=== PATIENT | female | born 1955 | race Caucasian/White ===

== ENCOUNTER 2019-06-20 14:26 | Observation (INO) | payer OTHER, SELFPAY ==
[2019-06-20] VITALS (12 sets, daily range): BP systolic 110–172; BP diastolic 69–130; PULSE 57–70; RESP 16–19; TEMP 36.1–36.7; O2SAT 96–100; BMI 37.4; BMI 36.5
--- NOTE | 2019-06-20 14:47 | RAD_ITS ---
STUDY: X-RAY CHEST REASON FOR EXAM: Female, 63 years old. STROKE PROTOCOL TECHNIQUE: AP portable COMPARISON: None. FINDINGS: Less than optimal inspiratory effort is seen however the lungs are clear.. There is no demonstrated pleural abnormality. Heart appears mildly enlarged exaggerated by radiographic technique. Normal mediastinum and jenna. Normal visualized pulmonary arteries. Tortuous mildly calcified aortic knob and descending thoracic aorta Normal visualized thoracic spine. Normal visualized ribs, clavicles, and shoulders. Postsurgical changes in left upper quadrant. RAD/Chest 1 View IMPRESSION: Diminished inspiratory effort. No acute disease Electronically Signed: Yoan Amado MD at 16:08 EDT , Service support ,
--- NOTE | 2019-06-20 14:47 | EKG12_ITS ---
Test Reason : NEURO Blood Pressure : / mmHG Vent. Rate : 055 BPM Atrial Rate : 055 BPM P-R Int : 162 ms QRS Dur : 084 ms QT Int : 450 ms P-R-T Axes : 029 -18 030 degrees QTc Int : 430 ms Sinus bradycardia Low Voltage QRS (Limb Leads) Confirmed by YESICA PRUETT, JAY ([id number]), offline editor ASHWINI MUHAMMAD ([id number]) on 06/22/2019 9:38:57 AM Referred By: Confirmed By:JAY ROBERT MD
--- NOTE | 2019-06-20 14:48 | CT_ITS ---
STUDY: CTA HEAD AND NECK WITH CONTRAST REASON FOR EXAM: Female, 63 years old. PT STATED VISUAL DISTURBANCE SINCE YESTERDAY, MEMORY LOSS DIFFICULTY READING X FEW DAYS RADIATION DOSAGE (If Supplied By Facility): CTDIvol = ( 31 ) mGy, DLP = ( 1487.08 ) mGycm TECHNIQUE: CT angiography was performed with a multi-detector CT scanner. Data acquisition was obtained from the skull base through the vertex following intravenous administration of 100ML OPTIRAY 350. MIP images were reconstructed from the axial data set. Post-processing of the angiographic images was performed, with multiplanar reformation and 3D reconstruction. Individualized dose optimization techniques were used for this CT. COMPARISON: No relevant priors. FINDINGS: Normal bilateral petrous carotid arteries. Mild calcific plaquing of the right cavernous carotid artery with a normal supraclinoid bifurcation. Mild calcific plaquing of the left cavernous carotid artery with a normal supraclinoid bifurcation. Normal right A1 segments of the anterior cerebral artery. Normal left A1 segments of the anterior cerebral artery. Normal intact anterior communicating artery (ACOM). Normal bilateral A2 segments of the anterior cerebral arteries. Normal right M1 and M2 segments of the middle cerebral arteries, with a normal M1 bifurcation. Normal left M1 and M2 segments of the middle cerebral arteries, with a normal M1 bifurcation. Posterior communicating arteries are not visualized consistent with normal variant Normal bilateral vertebral arteries. Normal basilar artery with a normal basilar bifurcation. The visualized bilateral superior cerebellar (SCA) arteries are normal. Normal bilateral P1, P2 and visualized P3 segments of the posterior cerebral arteries. There is no demonstrated aneurysm of the [place]. There is no demonstrated abnormality of the visualized brain. AORTIC ARCH: Normal visualized aortic arch. Normal origins of the brachiocephalic, left common carotid, and left subclavian arteries. RIGHT CAROTID ARTERIES: Mild calcific plaquing of the distal right common carotid artery (and right common carotid bulb. Normal origin of the right internal carotid (ICA) artery without a hemodynamically significant stenosis. Normal visualized cervical portion of the right internal carotid artery. Normal origin of the right external carotid artery (ECA). LEFT CAROTID ARTERIES: Mild calcific plaquing of the distal left common carotid artery (CCA and left common carotid bulb. Minor calcific plaquing of the origin of the left internal carotid (ICA) artery without a hemodynamically significant stenosis. Normal visualized cervical portion of the left internal carotid artery. Normal origin of the left external carotid artery (ECA). VERTEBRAL ARTERIES: Left vertebral is dominant and normal caliber. The right vertebral is mildly diffusely narrowed consistent with normal developmental variant. Small solid nodule noted in the left lobe of the thyroid which may be further assessed with ultrasound CT/CTA Head AND Neck W/ Contrast IMPRESSION: Mild atherosclerotic disease without evidence for hemodynamically significant stenosis Incidental finding of small solid left thyroid nodule which may be further assessed with ultrasound Electronically Signed: Yoan Amado MD at 16:13 EDT , Service support ,
--- NOTE | 2019-06-20 14:49 | ED.VIS.GEN ---
History of Present Illness Chief Complaint: Neuro S/Sx Informant: Patient Onset: Today Narrative: Patient states that yesterday she had a diffuse headache. Around noon she was watching television when the lateral field of vision of her left eye became nonexistent. She states that the words on the television she could see but did not make any sense to her. She states that after a couple hours it resolved. Today she has had more of a right-sided headache and states that her right eye is having difficulty seeing the words on the television. States she went to the kitchen and did not know with the microwave or the stove were called. She states on the way here she did not know what trees were. She denies any slurred speech facial droop or arm or leg symptoms. She states she knows them now. She denies any recent head injury. She denies any medical problems. She states that she does wear glasses when driving but is been about 8 years since she saw her eye doctor. Past Medical History - Allergies and Home Meds Allergies/Adverse Reactions: Allergies codeine Allergy (Verified 06/20/19 14:32) Vomiting Primary Care Physician: NOT,DEFINED [NON-STAFF] - Review of Systems General: Denies: Chills, Fever, Sweats Eyes: Reports: Visual changes - left, Visual changes - right. Denies: Visual changes - bilaterally, Diplopia ENT: Denies: Rhinorrhea, Sore throat Cardiovascular: Denies: Chest pain, Palpitations Respiratory: Denies: Dyspnea, Cough, Dyspnea on exertion Gastrointestinal: Denies: Abdominal pain, Nausea, Vomiting, Diarrhea, Melena, Hematochezia Genitourinary: Denies: Dysuria, Hematuria, Frequency Musculoskeletal: Denies: Back pain, Extremity Pain Skin: Denies: Rash, Wounds Neurological: Reports: Headache, - - Expressive aphasia. Denies: Weakness, Numbness Physical Exam Vital Signs/Narrative: Vital Signs Temp Pulse Resp BP Pulse Ox 06/20/19 14:27 96.9 F L 66 16 165/101 H 100 Inital Vital Signs reviewed: Yes General: Well nourished, Well developed, No Acute Distress Head: Normocephalic, Atraumatic Eyes: Perrl, EOMI, - - Funduscopic exam I do not see any obvious retinal detachment ENT: Moist mucous membranes, No rhinorrhea Neck: Supple, Nontender Cardiovascular: Regular rate, Regular rhythm, No murmurs Respiratory: No distress, CTA bilaterally, Chest nontender Abdomen: Soft, Nontender, Nondistended, Normal bowel sounds Back: Nontender, Normal Inspection Extremities: Nontender, No edema Skin: Normal color, No rash Neurological: Alert, Oriented x3, Cranial nerves II-XII grossly intact, Normal Strength, Normal Sensation, - - At the time of my examination I would score her a NIH of 0 Psychological: Normal affect, Normal Mood ED Disposition - Plan for ED Patient: Disposition: Acute Care [facility] Diagnosis: Headache, Vision changes, Elevated troponin Referrals: NOT,DEFINED [NON-STAFF] -
[2019-06-20 14:51] LABS: Bedside Glucose 78 mg/dL (70-110)
--- NOTE | 2019-06-20 14:54 | NURSING ---
NO OLD EKGS
[2019-06-20 15:01] LABS: Absolute Lymphocyte Count 2.66 X10^3/uL (0.83-4.51); Absolute Neutrophil Count 3.8 X10^3/uL (2.0-7.7); Basophil# 0.05 X10^3/uL; Basophil% 0.7 % (0-1); Eosinophil# 0.15 X10^3/uL; Hematocrit 40.5 % (37-47); Hemoglobin 12.7 g/dL (12.0-15.0); Lymphocyte # 2.66 X10^3/ul (4.0); Lymphocyte % 36.3 % (19-41); Mean Corp Hgb Conc 31.4 g/dL (32-36); Mean Corpuscular Hgb 27.8 pg (27.0-32.0); Mean Corpuscular Volume 88.6 fL (81-99); Mean Platelet Vol. 10.4 fl (6.2-12.0); Monocyte# 0.67 X10^3/uL; Monocyte% 9.1 % (0-10); NRBC Flagged by Analyzer 0 % (0-5); Neutrophil # 3.79 X10^3/uL (2.7-7.7); Neutrophil % 51.8 % (47-70); Platelet Count 299 K/mm3 (150-450); RBC Distribution Width CV 14.6 % (11.6-14.6); RBC Distribution Width SD 46.5 fl (35.1-43.9); Red Blood Count 4.57 M/mm3 (4.2-5.4); White Blood Count 7.3 K/mm3 (4.4-11.0)
[2019-06-20 15:18] LABS: Prothrombin Time (Protime)PT. 13.3 SECONDS (11.7-14.9)
[2019-06-20 15:19] LABS: Partial Thromboplast Time 30.5 Seconds (24.1-36.2)
[2019-06-20 15:21] LABS: Anion Gap 6 (5-15); BUN 13 mg/dL (7-18); Calcium,Total 8.7 mg/dL (8.5-10.1); Chloride 109 mmol/L (98-107); Creatinine, Serum 0.81 mg/dL (0.55-1.02); EST Glomerular Filtration Rate 76 mL/min (>60); Est Glom Filt Rate - Afr Amer 91 mL/min (>60); Estimated Creatinine Clearance 61.39 ml/min; Glucose 85 mg/dL (74-106); Potassium 3.9 mmol/L (3.5-5.1); Sodium Level 142 mmol/L (136-145)
[2019-06-20 15:53] LABS: AST(SGOT) 30 U/L (15-37); Alanine Aminotransfer ALT/SGPT 32 U/L (13-56); Albumin, Serum 3.7 g/dL (3.2-5.0); Alkaline Phosphatase 157 U/L (45-117); Bilirubin, Direct 0.11 mg/dL (0.00-0.30); Globulin 3.8 g/dL (2.2-4.2); Protein, Total 7.5 g/dL (6.4-8.2)
[2019-06-20 16:05] LABS: Magnesium 2.3 mg/dL (1.6-2.6); Thyroid Stim Hormone (TSH) 2.05 uIU/mL (0.358-3.74)
--- NOTE | 2019-06-20 17:01 | HP.PCM_ITS ---
<Cindy Cornejo - Last Filed: 06/20/19 17:26> Problem List (1) Headache Status: Acute (2) Vision changes Status: Acute (3) Elevated troponin Status: Acute History of Present Illness Date of Admission: 06/20/19 Chief Complaint: Vision changes. The patient is a 63 year old F who presents to the Emergency room due to vision changes and difficulty finding words. Patient states last evening she was watching TV and noticed left eye peripheral vision changes which lasted 30 minutes to 1 hour. She then states today she was watching the news and had trou ble understanding what the words meant to the bottom of the screen. She then had difficulty remembering what things were called including the stove and microwave and her had to help her identify these things. She states the right side of her eye and face feels funny describing it as feeling swollen. She denies numbness, tingling. Denies further vision changes. She reports mucousy diarrhea for the past 4 days. Denies fever, chills. Denies cough, shortness of breath, palpitations, chest pain. Patient reports mild headache, ongoing for 3 to 4 days which is on the top of her head. She has a history of migraines and states her ongoing headache is much less severe than her typical migraine. Patient states she has been under increased stress over the last week due to being at home with her . She states she gets tired of hearing him talk. She denies any abuse at home, states she feels safe at home. She has a past medical history of depression, denies other medical history. Past Medical History Allergies codeine Allergy (Verified 06/20/19 14:32) Vomiting Home Medications: Ambulatory Orders Medication Instructions Recorded Escitalopram Oxalate [Lexapro] 10 mg PO DAILY PRN PRN 06/20/19 Surgical History: - - Tonsillectomy, appendectomy, cholecystectomy, gastric bypass surgery, left knee surgery. 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 Denies: Abdominal Pain, Nausea, Vomiting Genitourinary: Reports: Dysuria Musculoskeletal: Denies: Joint Pain, Joint Tenderness Skin: Denies: Rash, Wounds Neurological: Reports: Blurred vision, - - Difficulty finding words. Denies: Change in Speech, Slurred speech, Confusion, Difficulty swallowing, Focal weakness, Numbness, Tingling Psychiatric: Reports: Anxiety, Depression Hematologic/ Lymphatic: Denies: Easy Bruising, Easy Bleeding VTE Information - Inpt Only VTE Present on Admission: No VTE Mechan Device Prophylaxis: None VTE Pharm Prophylaxis ordered?: Yes Patient Problems: Active and Suspected Problems Headache (Acute) Vision changes (Acute) Elevated troponin (Acute) - Physical Exam Vitals/I&O's: Vital Signs Temp Pulse Resp BP Pulse Ox 96.9 F L 60 19 H 163/93 H 99 06/20/19 14:27 06/20/19 16:00 06/20/19 16:00 06/20/19 16:00 06/20/19 16:00 Oxygen Delivery Method Room Air Weight: 218 lb 0.595 oz Body Mass Index (BMI) 37.4 Finger Stick Blood Glucose 78 General: Alert, Oriented x3, Cooperative HEENT: Atraumatic, PERRLA, EOMI, Normocephalic Neck: Supple, No JVD, Negative Carotid Bruits Lungs: Clear to auscultation, Normal air movement Cardiovascular: Regular rate, No murmurs Abdomen: Bowel Sounds Present, Soft, Non Tender Extremities: No clubbing, No cyanosis, No edema, Capillary Refill Less than 3 Seconds Skin: No rashes, No breakdown Musculoskeletal: No Tenderness to Palpation of Joints or Extremities Neurological: Cranial nerves II-XII grossly intact, Neuro grossly intact Psych/Mental Status: Normal Affect, Appropriate Laboratory Results 06/20/19 14:43: POC Glucose 78 06/20/19 14:50: WBC 7.3, RBC 4.57, Hgb 12.7, Hct 40.5, MCV 88.6, MCH 27.8, MCHC 31.4 L, RDW Std Deviation 46.5 H, RDW Coeff of Anibal 14.6, Plt Count 299, MPV 10.4, Immature Gran % (Auto) 0.100, Neut % (Auto) 51.8, Lymph % (Auto) 36.3, [place] % (Auto) 9.1, Eos % (Auto) 2.0, Baso % (Auto) 0.7, Absolute Neuts (auto) 3.8, Absolute Lymphs (auto) 2.66, Nucleated RBC % 0 06/20/19 14:50: PT 13.3, INR 1.0, APTT 30.5 06/20/19 14:50: Sodium 142, Potassium 3.9, Chloride 109 H, Carbon Dioxide 27.0, Anion Gap 6, BUN 13, Creatinine 0.81, Estim Creat Clear Calc 61.39, Est GFR (MDRD) Af Amer 91, Est GFR (MDRD) Non-Af 76, BUN/Creatinine Ratio 16.0, Glucose 85, Calcium 8.7, Troponin I 0.171 H 06/20/19 14:50: Total Bilirubin 0.30, Direct Bilirubin 0.11, AST 30, ALT 32, Alkaline Phosphatase 157 H, Total Protein 7.5, Albumin 3.7, Globulin 3.8 06/20/19 14:50: Magnesium 2.3, TSH 2.05 Assessment/Plan All Active Problems Headache (Acute) Vision changes (Acute) Elevated troponin (Acute) 1. Vision changes, headache, aphasia- R/O CVA. Head and neck CTA on admission unremarkable. Obtain MRI of brain. Obtain echocardiogram. [facility]. PT/OT/ST. Aspirin, statin. Fasting lipid panel in a.m. Check hemoglobin A1c. 2. Abnormal troponin-unclear etiology. EKG without ST-T changes. Patient denies chest pain. Trend enzymes. Repeat EKG in a.m. Echo as noted above. 3. Anxiety/depression-continue Lexapro regimen. DVT prophylaxis-Lovenox subcu This patient was seen by KAITLYN Quispe under the supervision of Dr. Phillips. <Sharri Phillips - Last Filed: 06/20/19 18:15> History of Present Illness The patient is a 63 year old F [] Past Medical History Allergies codeine Allergy (Verified 06/20/19 14:32) Vomiting - Physical Exam Vitals/I&O's: Vital Signs Temp Pulse Resp BP Pulse Ox 96.9 F L 57 L 16 163/130 H 100 06/20/19 14:27 06/20/19 17:00 06/20/19 17:00 06/20/19 17:00 06/20/19 17:00 Oxygen Delivery Method Room Air Weight: 98.9 kg Body Mass Index (BMI) 37.4 Finger Stick Blood Glucose 78 Laboratory Results 06/20/19 14:43: POC Glucose 78 06/20/19 14:50: WBC 7.3, RBC 4.57, Hgb 12.7, Hct 40.5, MCV 88.6, MCH 27.8, MCHC 31.4 L, RDW Std Deviation 46.5 H, RDW Coeff of Anibal 14.6, Plt Count 299, MPV 10.4, Immature Gran % (Auto) 0.100, Neut % (Auto) 51.8, Lymph % (Auto) 36.3, [place] % (Auto) 9.1, Eos % (Auto) 2.0, Baso % (Auto) 0.7, Absolute Neuts (auto) 3.8, Absolute Lymphs (auto) 2.66, Nucleated RBC % 0 06/20/19 14:50: PT 13.3, INR 1.0, APTT 30.5 06/20/19 14:50: Sodium 142, Potassium 3.9, Chloride 109 H, Carbon Dioxide 27.0, Anion Gap 6, BUN 13, Creatinine 0.81, Estim Creat Clear Calc 61.39, Est GFR (MDRD) Af Amer 91, Est GFR (MDRD) Non-Af 76, BUN/Creatinine Ratio 16.0, Glucose 85, Calcium 8.7, Troponin I 0.171 H 06/20/19 14:50: Total Bilirubin 0.30, Direct Bilirubin 0.11, AST 30, ALT 32, Alkaline Phosphatase 157 H, Total Protein 7.5, Albumin 3.7, Globulin 3.8 06/20/19 14:50: Magnesium 2.3, TSH 2.05 Current Medications Sodium Chloride () 10 - 40 ml IV UD PRN PRN Reason: SALINE FLUSH Assessment/Plan This patient was seen in conjunction with Cindy Cornejo NP. I have independently interviewed and examined the patient and reviewed pertinent historical, laboratory, and other data. Please refer to her note for patient's presentation, findings, and recommendations. 63 y/o female with PMHx of anxiety/depression, history of migraine, not on medication who comes in with left-sided peripheral vision loss that lasted for 30 minutes yesterday and progressive worsening vision as well as word finding difficulty that started this afternoon. Her symptoms seem to fluctuate. She has a 3 day history of generalized cranial headache, no worse with any lights. This does not feel like a migraines. She denied any palpitations or chest pain or shortness of breath. No weakness or tingling in any of her extremities. 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 Visual changes, possible TIA/CVA versus conversion disorder vs complex migraine 2. Abnormal troponin 3. Anxiety/depression 4. Obesity, BMI 36.5 Meds reviewed Plan: TIA/CVA protocol MRI of the brain, 2D echo, PT/OT/ST HgbA1c, fasting lipid profile Aspirin 81 mg p.o. daily Atorvastatin 80 mg p.o. nightly Trend troponins OBSV E&M: 36511 Initial observation care L3
--- NOTE | 2019-06-20 17:02 | NURSING ---
PCU PAINTSIL HEADACHE, VISION CHANGES, ELEVATED TROP
--- NOTE | 2019-06-20 17:17 | ED.RN ---
DR. REZA CANCELS EVERY 30 MINUTE [facility]S
--- NOTE | 2019-06-20 17:51 | MRI_ITS ---
STUDY: MRI BRAIN WITHOUT CONTRAST REASON FOR EXAM: Female, 63 years old. R headache R vision loss TECHNIQUE: Standardized multiplanar fat and water weighted pulse sequences were obtained. COMPARISON: CT of the brain June 20, 2019 FINDINGS: Normal size of the ventricles and extra-axial spaces for the patient''s age. There are a couple of tiny nonspecific white matter lesions without mass effect or restricted diffusion likely due to small vessel ischemic changes in patient of this age. Normal bilateral basal ganglia. Normal thalami. There is no extra-axial fluid accumulation. Normal flow voids within the major intracranial circulation suggesting patency by spin echo criteria. Normal sella turcica, pituitary gland, infundibular stalk, optic chiasm and hypothalamus. Normal tectal plate and pineal gland. Normal midbrain, jaz and medulla. Normal cerebellum. Normal basal cisterns. Normal bilateral temporal bones. Normal bilateral internal auditory canals. No demonstrated orbital abnormality, within the constraints of a routine brain study. Minor mucosal thickening of the ethmoid air cells. Normal calvarium and skull base. Normal visualized soft tissue structures. Normal visualized upper cervical spine. MRI/Brain without Contrast IMPRESSION: Minor periventricular white matter ischemic changes without evidence for acute infarct. Minor ethmoid sinus disease Electronically Signed: Yoan Amado MD at 20:47 EDT , Service support ,
[2019-06-20] MEDS: Acetaminophen 325 MG Tablet 650 MG PO (18:14)
[2019-06-20 20:06] LABS: Hemoglobin A1c 6.1 % (4.2-6.3)
[2019-06-20] MEDS: Atorvastatin Calcium 80 MG Tablet PO (21:44)
[2019-06-20] MEDS: Famotidine 20 MG Tablet PO (21:44)
[2019-06-21] VITALS (9 sets, daily range): BP systolic 101–139; BP diastolic 67–84; PULSE 55–94; RESP 16–18; TEMP 36.4–36.9; O2SAT 95–97; BMI 36.5
[2019-06-21] MEDS: Acetaminophen 325 MG Tablet 650 MG PO (03:53)
[2019-06-21 05:59] LABS: Absolute Lymphocyte Count 1.83 X10^3/uL (0.83-4.51); Absolute Neutrophil Count 1.7 X10^3/uL (2.0-7.7); Basophil# 0.04 X10^3/uL; Basophil% 0.9 % (0-1); Eosinophil# 0.17 X10^3/uL; Hematocrit 36.7 % (37-47); Hemoglobin 11.3 g/dL (12.0-15.0); Lymphocyte # 1.83 X10^3/ul (4.0); Lymphocyte % 43.1 % (19-41); Mean Corp Hgb Conc 30.8 g/dL (32-36); Mean Corpuscular Hgb 27.2 pg (27.0-32.0); Mean Corpuscular Volume 88.4 fL (81-99); Mean Platelet Vol. 10.5 fl (6.2-12.0); Monocyte% 11.8 % (0-10); NRBC Flagged by Analyzer 0 % (0-5); Platelet Count 252 K/mm3 (150-450); RBC Distribution Width CV 14.4 % (11.6-14.6); RBC Distribution Width SD 46.2 fl (35.1-43.9); Red Blood Count 4.15 M/mm3 (4.2-5.4); White Blood Count 4.3 K/mm3 (4.4-11.0)
[2019-06-21 06:21] LABS: AST(SGOT) 23 U/L (15-37); Alanine Aminotransfer ALT/SGPT 27 U/L (13-56); Alkaline Phosphatase 128 U/L (45-117); Anion Gap 6 (5-15); BUN 12 mg/dL (7-18); BUN/Creat Ratio 16.6 RATIO (10-20); Calcium,Total 8.1 mg/dL (8.5-10.1); Chloride 109 mmol/L (98-107); Cholesterol 131 mg/dL (200); Creatinine, Serum 0.72 mg/dL (0.55-1.02); EST Glomerular Filtration Rate 86 mL/min (>60); Est Glom Filt Rate - Afr Amer 104 mL/min (>60); Estimated Creatinine Clearance 69.06 ml/min; Globulin 3.1 g/dL (2.2-4.2); Glucose 86 mg/dL (74-106); High Density Lipoprotein 60 mg/dL; Protein, Total 6.1 g/dL (6.4-8.2); Sodium Level 141 mmol/L (136-145); Triglycerides 46 mg/dL; Very Low Density Lipoprotein 9 mg/dL (5-40)
[2019-06-21] MEDS: Escitalopram Oxalate 10 MG Tablet PO (09:35)
[2019-06-21] MEDS: Aspirin 81 MG TAB.CHEW PO (09:35)
[2019-06-21] MEDS: Famotidine 20 MG Tablet PO ×2 (09:35→21:05)
[2019-06-21] MEDS: Acetaminophen 500 MG Tablet 1000 MG PO ×2 (11:06→19:43)
--- NOTE | 2019-06-21 11:14 | PCM.PROGNOTE ---
<Cindy Cornejo - Last Filed: 06/21/19 11:25> Patient Problems: Active and Suspected Problems Headache (Acute) Vision changes (Acute) Elevated troponin (Acute) Subjective: Patient seen and examined. Complains of mild headache and states her right face continues to feel abnormal. She denies numbness. States right face feels swollen. Denies chest pain or other current complaints. Patient reports she has had intermittent chest pain for the past few years, most recently 2 weeks ago. Episodes happen typically at rest and last for approximately 2 minutes. - Physical Exam Vitals/I&O's: Vital Signs Temp Pulse Resp BP Pulse Ox 98.5 F 75 16 110/73 97 06/21/19 10:50 06/21/19 10:50 06/21/19 10:50 06/21/19 10:50 06/21/19 10:50 Oxygen Delivery Method Room Air Weight: 214 lb 11.684 oz Body Mass Index (BMI) 36.5 Finger Stick Blood Glucose 78 Intake and Output for Last 24 Hours 06/19/19 06/20/19 06/21/19 23:59 23:59 23:59 Intake Total 240 / 240 Balance 240 / 240 General: Alert, Oriented x3, Cooperative HEENT: Atraumatic, PERRLA, EOMI, Normocephalic Neck: Supple, No JVD, Negative Carotid Bruits Lungs: Clear to auscultation, Normal air movement Cardiovascular: Regular rate, Regular Rhythm, Normal S1, Normal S2, No murmurs Abdomen: Bowel Sounds Present, Soft, Non Tender, Non-Distended Extremities: No clubbing, No cyanosis, No edema, Capillary Refill Less than 3 Seconds Skin: No rashes, No breakdown Musculoskeletal: No Tenderness to Palpation of Joints or Extremities Neurological: Cranial nerves II-XII grossly intact, Neuro grossly intact Psych/Mental Status: Normal Affect, Appropriate Laboratory Results 06/20/19 14:43: POC Glucose 78 06/20/19 14:50: WBC 7.3, RBC 4.57, Hgb 12.7, Hct 40.5, MCV 88.6, MCH 27.8, MCHC 31.4 L, RDW Std Deviation 46.5 H, RDW Coeff of Anibal 14.6, Plt Count 299, MPV 10.4, Immature Gran % (Auto) 0.100, Neut % (Auto) 51.8, Lymph % (Auto) 36.3, [place] % (Auto) 9.1, Eos % (Auto) 2.0, Baso % (Auto) 0.7, Absolute Neuts (auto) 3.8, Absolute Lymphs (auto) 2.66, Nucleated RBC % 0 06/20/19 14:50: PT 13.3, INR 1.0, APTT 30.5 06/20/19 14:50: Sodium 142, Potassium 3.9, Chloride 109 H, Carbon Dioxide 27.0, Anion Gap 6, BUN 13, Creatinine 0.81, Estim Creat Clear Calc 61.39, Est GFR (MDRD) Af Amer 91, Est GFR (MDRD) Non-Af 76, BUN/Creatinine Ratio 16.0, Glucose 85, Calcium 8.7, Troponin I 0.171 H 06/20/19 14:50: Total Bilirubin 0.30, Direct Bilirubin 0.11, AST 30, ALT 32, Alkaline Phosphatase 157 H, Total Protein 7.5, Albumin 3.7, Globulin 3.8 06/20/19 14:50: Magnesium 2.3, TSH 2.05 06/20/19 19:40: Hemoglobin A1c 6.1 06/20/19 19:40: Troponin I 0.156 H 06/20/19 23:05: Troponin I 0.149 H 06/21/19 05:16: WBC 4.3 L, RBC 4.15 L, Hgb 11.3 L, Hct 36.7 L, MCV 88.4, MCH 27.2, MCHC 30.8 L, RDW Std Deviation 46.2 H, RDW Coeff of Anibal 14.4, Plt Count 252, MPV 10.5, Immature Gran % (Auto) 0.200, Neut % (Auto) 40.0 L, Lymph % (Auto) 43.1 H, [place] % (Auto) 11.8 H, Eos % (Auto) 4.0, Baso % (Auto) 0.9, Absolute Neuts (auto) 1.7 L, Absolute Lymphs (auto) 1.83, Nucleated RBC % 0 06/21/19 05:16: Sodium 141, Potassium 4.0, Chloride 109 H, Carbon Dioxide 26.0, Anion Gap 6, BUN 12, Creatinine 0.72, Estim Creat Clear Calc 69.06, Est GFR (MDRD) Af Amer 104, Est GFR (MDRD) Non-Af 86, BUN/Creatinine Ratio 16.6, Glucose 86, Calcium 8.1 L, Total Bilirubin 0.50, AST 23, ALT 27, Alkaline Phosphatase 128 H, Total Protein 6.1 L, Albumin 3.0 L, Globulin 3.1, Albumin/Globulin Ratio 1.0, Triglycerides 46, Cholesterol 131, LDL Cholesterol 62, VLDL Cholesterol 9, HDL Cholesterol 60 Current Medications Acetaminophen (Tylenol) 1,000 mg PO Q8H PRN PRN PRN Reason: Pain Score 1-10/Temp > 100.7 F Last Admin: 06/21/19 11:06 Dose: 1,000 mg Documented by: Al Hydroxide/Mg Hydroxide (Mylanta Ii) 30 ml PO Q6H PRN PRN PRN Reason: Gastric Burning Aspirin (Aspirin, Baby) 81 mg PO DAILY@0800 [facility] Last Admin: 06/21/19 09:35 Dose: 81 mg Documented by: Atorvastatin Calcium (Lipitor) 80 mg PO QHS [facility] Last Admin: 06/20/19 21:44 Dose: 80 mg Documented by: Escitalopram Oxalate (Lexapro) 10 mg PO DAILY [facility] Last Admin: 06/21/19 09:35 Dose: 10 mg Documented by: Famotidine (Pepcid) 20 mg PO BID [facility] Last Admin: 06/21/19 09:35 Dose: 20 mg Documented by: Nitroglycerin (Nitrostat) 0.4 mg SUBLINGUAL Q5M PRN PRN Reason: CARDIAC/CHEST PAIN Sodium Chloride () 10 - 40 ml IV UD PRN PRN Reason: SALINE FLUSH Medical Necessity - Tobacco Use Smoking Status: Never smoker Tobacco Use: Non-smoker, Secondhand Assessment/Plan All Active Problems Headache (Acute) Vision changes (Acute) Elevated troponin (Acute) 1. Atypical migraine versus TIA-CVA ruled out. Head and neck CTA on admission unremarkable. MRI of brain without acute infarct. PT/OT/ST. Aspirin, statin. Recommend outpatient neurology follow-up. Ketorolac 30 mg IV x1 for ongoing headache. 2. Abnormal troponin-unclear etiology. EKG without ST-T changes. Patient denies chest pain. Enzymes did not trend. Plan for nuclear stress test. 3. Anxiety/depression-continue Lexapro regimen. DVT prophylaxis-Lovenox subcu This patient was seen by KAITLYN Quispe under the supervision of Dr. Mcknight. <James Mcknight - Last Filed: 06/21/19 13:53> Subjective: Headache for 5-6 days. Still with a swollen sensation on right side of face. Intermittent chest pain. - Physical Exam Vitals/I&O's: Vital Signs Temp Pulse Resp BP Pulse Ox 36.9 C 75 16 110/73 97 06/21/19 10:50 06/21/19 10:50 06/21/19 10:50 06/21/19 10:50 06/21/19 10:50 Oxygen Delivery Method Room Air Weight: 97.4 kg Body Mass Index (BMI) 36.5 Finger Stick Blood Glucose 78 Intake and Output for Last 24 Hours 06/19/19 06/20/19 06/21/19 23:59 23:59 23:59 Intake Total 240 / 240 480 / 480 Balance 240 / 240 480 / 480 General: Alert, Cooperative Neck: No Nodes, Trachea Midline Lungs: Clear to auscultation, Normal air movement Cardiovascular: Regular rate, Regular Rhythm, Normal S1, Normal S2, No murmurs Abdomen: Bowel Sounds Present, Soft, Non Tender, Non-Distended Neurological: Cranial nerves II-XII grossly intact, Neuro grossly intact, Motor Exam 5/5 strength throughout Psych/Mental Status: Normal Affect, Appropriate Laboratory Results 06/20/19 14:43: POC Glucose 78 06/20/19 14:50: WBC 7.3, RBC 4.57, Hgb 12.7, Hct 40.5, MCV 88.6, MCH 27.8, MCHC 31.4 L, RDW Std Deviation 46.5 H, RDW Coeff of Anibal 14.6, Plt Count 299, MPV 10.4, Immature Gran % (Auto) 0.100, Neut % (Auto) 51.8, Lymph % (Auto) 36.3, [place] % (Auto) 9.1, Eos % (Auto) 2.0, Baso % (Auto) 0.7, Absolute Neuts (auto) 3.8, Absolute Lymphs (auto) 2.66, Nucleated RBC % 0 06/20/19 14:50: PT 13.3, INR 1.0, APTT 30.5 06/20/19 14:50: Sodium 142, Potassium 3.9, Chloride 109 H, Carbon Dioxide 27.0, Anion Gap 6, BUN 13, Creatinine 0.81, Estim Creat Clear Calc 61.39, Est GFR (MDRD) Af Amer 91, Est GFR (MDRD) Non-Af 76, BUN/Creatinine Ratio 16.0, Glucose 85, Calcium 8.7, Troponin I 0.171 H 06/20/19 14:50: Total Bilirubin 0.30, Direct Bilirubin 0.11, AST 30, ALT 32, Alkaline Phosphatase 157 H, Total Protein 7.5, Albumin 3.7, Globulin 3.8 06/20/19 14:50: Magnesium 2.3, TSH 2.05 06/20/19 19:40: Hemoglobin A1c 6.1 06/20/19 19:40: Troponin I 0.156 H 06/20/19 23:05: Troponin I 0.149 H 06/21/19 05:16: WBC 4.3 L, RBC 4.15 L, Hgb 11.3 L, Hct 36.7 L, MCV 88.4, MCH 27.2, MCHC 30.8 L, RDW Std Deviation 46.2 H, RDW Coeff of Anibal 14.4, Plt Count 252, MPV 10.5, Immature Gran % (Auto) 0.200, Neut % (Auto) 40.0 L, Lymph % (Auto) 43.1 H, [place] % (Auto) 11.8 H, Eos % (Auto) 4.0, Baso % (Auto) 0.9, Absolute Neuts (auto) 1.7 L, Absolute Lymphs (auto) 1.83, Nucleated RBC % 0 06/21/19 05:16: Sodium 141, Potassium 4.0, Chloride 109 H, Carbon Dioxide 26.0, Anion Gap 6, BUN 12, Creatinine 0.72, Estim Creat Clear Calc 69.06, Est GFR (MDRD) Af Amer 104, Est GFR (MDRD) Non-Af 86, BUN/Creatinine Ratio 16.6, Glucose 86, Calcium 8.1 L, Total Bilirubin 0.50, AST 23, ALT 27, Alkaline Phosphatase 128 H, Total Protein 6.1 L, Albumin 3.0 L, Globulin 3.1, Albumin/Globulin Ratio 1.0, Triglycerides 46, Cholesterol 131, LDL Cholesterol 62, VLDL Cholesterol 9, HDL Cholesterol 60 Current Medications Acetaminophen (Tylenol) 1,000 mg PO Q8H PRN PRN PRN Reason: Pain Score 1-10/Temp > 100.7 F Last Admin: 06/21/19 11:06 Dose: 1,000 mg Documented by: Al Hydroxide/Mg Hydroxide (Mylanta Ii) 30 ml PO Q6H PRN PRN PRN Reason: Gastric Burning Aspirin (Aspirin, Baby) 81 mg PO DAILY@0800 [facility] Last Admin: 06/21/19 09:35 Dose: 81 mg Documented by: Atorvastatin Calcium (Lipitor) 80 mg PO QHS [facility] Last Admin: 06/20/19 21:44 Dose: 80 mg Documented by: Escitalopram Oxalate (Lexapro) 10 mg PO DAILY [facility] Last Admin: 06/21/19 09:35 Dose: 10 mg Documented by: Famotidine (Pepcid) 20 mg PO BID [facility] Last Admin: 06/21/19 09:35 Dose: 20 mg Documented by: Nitroglycerin (Nitrostat) 0.4 mg SUBLINGUAL Q5M PRN PRN Reason: CARDIAC/CHEST PAIN Sodium Chloride () 10 - 40 ml IV UD PRN PRN Reason: SALINE FLUSH Last Admin: 06/21/19 12:27 Dose: 10 ml Documented by: Assessment/Plan Patient seen and examined independently. Data reviewed. I agree with the above note by the nurse practitioner. 1. Atypical migraine: Stroke ruled out. We will treat the patient with a one-time dose of dexamethasone. Ketorolac as needed. Avoid triptan's until we find out further was going on from a cardiac standpoint. Patient states that she does get migraines occasionally but is still in frequent overall. Therefore, I do not feel the patient needs to be on any long-term prophylaxis. 2. Chest pain: Slight elevation in cardiac markers. Plan is for a nuclear stress test June 21. OBSV E&M: 12063 Initial observation care L3
[2019-06-21] MEDS: Ketorolac 30 MG/ML Syringe IV (12:25)
[2019-06-21] MEDS: 0.9% Saline Lock 10 ML Syringe IV ×3 (12:25→21:05)
[2019-06-21] MEDS: dexAMETHasone 10 MG/ML Vial IV (12:27)
[2019-06-21] MEDS: Atorvastatin Calcium 80 MG Tablet PO (21:04)
[2019-06-21] MEDS: Ketorolac 15 MG/ML Vial IV (21:05)
--- NOTE | 2019-06-21 23:38 | EKG12_ITS ---
Test Reason : DYSRHYTHMIA Blood Pressure : / mmHG Vent. Rate : 059 BPM Atrial Rate : 059 BPM P-R Int : 168 ms QRS Dur : 084 ms QT Int : 428 ms P-R-T Axes : 019 -23 029 degrees QTc Int : 423 ms Sinus bradycardia Otherwise normal ECG When compared with ECG of 20-JUN-2019 15:06, No significant change was found Confirmed by MICHAEL PRUETT, TYLER ([id number]), department editor SHIV CRONIN ([id number]) on 06/28/2019 2:33:38 PM Referred By: JOSE Confirmed By:TYLER RODRIGUEZ MD
[2019-06-22 00:30] VITALS: BP 126/69; PULSE 61; RESP 16; TEMP 36.5; O2SAT 94
[2019-06-22 02:59] VITALS: PULSE 53
--- NOTE | 2019-06-22 05:55 | EKG12_ITS ---
Test Reason : AM EKG Blood Pressure : / mmHG Vent. Rate : 060 BPM Atrial Rate : 060 BPM P-R Int : 156 ms QRS Dur : 090 ms QT Int : 450 ms P-R-T Axes : 019 -08 046 degrees QTc Int : 450 ms Sinus rhythm with Premature supraventricular complexes Otherwise normal ECG When compared with ECG of 21-JUN-2019 23:53, MANUAL COMPARISON REQUIRED, DATA IS UNCONFIRMED Confirmed by MICHAEL PRUETT, TYLER ([id number]), film or videotape editor SHIV CRONIN ([id number]) on 06/28/2019 2:33:18 PM Referred By: JOSE Confirmed By:TYLER RODRIGUEZ MD
[2019-06-22 06:30] VITALS: BP 126/63; PULSE 61; RESP 16; TEMP 36.6; O2SAT 95
[2019-06-22] MEDS: Aspirin 81 MG TAB.CHEW PO (06:37)
[2019-06-22] MEDS: Famotidine 20 MG Tablet PO (06:37)
[2019-06-22] MEDS: 0.9% Saline Lock 10 ML Syringe IV ×2 (06:39→10:56)
[2019-06-22] MEDS: Acetaminophen 500 MG Tablet 1000 MG PO (06:39)
[2019-06-22 06:49] VITALS: PULSE 56
--- NOTE | 2019-06-22 09:17 | CASEMGMT ---
SW did not complete a PHQ-9 with patient as per physician she did not have a TIA or Stroke. Tammy SCRUGGS MSW
--- NOTE | 2019-06-22 10:32 | STRESSREP ---
Stress Test Report Date: 06-22-2019 Procedure: Pharmacologic stress nuclear imaging study Indications: Chest pain; abnormal cardiac enzymes/troponin I levels Consent: Per the patient Procedure: The patient underwent pharmacologic (Regadenoson) evaluation with a peak heart rate of 111 beats per minute (70 %predicted maximal heart rate) and a peak blood pressure of 132/74 mmHg. The baseline ECG demonstrated sinus rhythm. The peak pharmacologic ECG demonstrated no obvious ECG changes. There was a rare PVC during recovery. There was no complaint of chest discomfort during pharmacologic infusion or recovery. The examination was discontinued secondary to completion of protocol. Impression: 1. Pharmacologic (Regadenoson) evaluation 2. Peak pharmacologic ECG with obvious ECG changes. 3. Was a rare PVC during recovery. 4. Nuclear images pending Myocardial perfusion imaging study: Technique: The patient was injected with 11.7 millicuries of technetium 99m Cardiolite and subsequently rest SPECT Cardiolite nuclear imaging was obtained in the horizontal long, vertical long, and short axis views. The patient underwent pharmacologic (Regadenoson) evaluation with a peak heart rate of 111 beats per minute (70 % percent predicted maximal heart rate) and a peak blood pressure of 132/74 mmHg. The patient was injected with 34.0 millicuries of technetium 99m Cardiolite and subsequently stress SPECT Cardiolite nuclear imaging was obtained in the horizontal long, vertical long, and short axis views. A gated Cardiolite study at peak stress was obtained. Interpretation: Rest and stress SPECT Cardiolite nuclear imaging status post realignment, normalization, and attenuation correction demonstrate relative uniform tracer uptake and myocardial perfusion appearing within normal limits. There is end systolic thickening and brightening. The gated Cardiolite study demonstrates myocardial thickening and inward wall motion. The reported LVEF is 78 %. Impression: 1. Relative uniform tracer uptake and myocardial perfusion appearing within normal limits. 2. The gated Cardiolite study reports an LVEF of 78 %. This note was generated with [employer] software. It may contain incorrect words, spelling, and punctuation that were not noted in checking the note before signing.
[2019-06-22 10:50] VITALS: BP 122/60; PULSE 75; RESP 16; TEMP 36.3; O2SAT 96
[2019-06-22] MEDS: Escitalopram Oxalate 10 MG Tablet PO (10:52)
[2019-06-22] MEDS: Ketorolac 15 MG/ML Vial IV (10:56)
[2019-06-22 10:59] VITALS: PULSE 64
--- NOTE | 2019-06-22 11:50 | DCINST_ITS ---
- Discharge Diagnoses Current Active Problems: Current Active and Chronic Problems Headache (Acute) Vision changes (Acute) Elevated troponin (Acute) You will use the following diet at home:: No restrictions Discharge Activity: Return to Normal Activity Call your doctor if you observe: Shortness of breath, Dizziness, Fainting spells, Chest pain Allergies/Adverse Reactions: Allergies codeine Allergy (Verified 06/20/19 14:32) Vomiting Medications to take at Discharge Escitalopram Oxalate [Lexapro] 10 mg PO DAILY PRN PRN 06/20/19 Sumatriptan Succinate [Imitrex] 50 mg PO .X1 PRN #20 tablet 06/22/19 The following prescriptions were given: Sumatriptan Succinate [Imitrex] 50 mg PO .X1 PRN #20 tablet Primary Care Physician: NOT,DEFINED [NON-STAFF] - Please follow up with your Primary Care Physician in: 1 Week Test Results: Test results from this visit will be discussed in further detail at your follow- up appointment, if applicable. Please Follow Up With: Mayo Aguiar MD - Neurology When: Call for follow up appt
--- NOTE | 2019-06-22 11:53 | DS.PCM_ITS ---
<Cindy Cornejo - Last Filed: 06/22/19 12:00> Discharge Date and Diagnosis Date of Admission: 06/20/19 Date of Discharge: 06/22/19 - Primary Discharge Diagnosis Active and Suspected Problems 1. Atypical migraine 2. Abnormal troponin, acs ruled out 3. Anxiety/depression Hospital Course and Treatment Imaging Results: Diagnostic Data Chest X-Ray 06/20/19 14:47 IMPRESSION: Diminished inspiratory effort. No acute disease Electronically Signed: Yoan Amado MD at 16:08 EDT , Service support , Head/Neck CTA 06/20/19 14:48 IMPRESSION: Mild atherosclerotic disease without evidence for hemodynamically significant stenosis Incidental finding of small solid left thyroid nodule which may be further assessed with ultrasound Electronically Signed: Yoan Amado MD at 16:13 EDT , Service support , Brain MRI 06/20/19 17:51 IMPRESSION: Minor periventricular white matter ischemic changes without evidence for acute infarct. Minor ethmoid sinus disease Electronically Signed: Yoan Amado MD at 20:47 EDT , Service support , Operations: None Procedures: Stress test Summary of Care Provided: The patient is a 63 year old F admitted 06/20/2019 due to vision changes. 1. Atypical migraine- TIA/CVA ruled out. Head and neck CTA on admission unremarkable. MRI of brain without acute infarct. Patient continues to have residual right facial symptoms and mild headache. Rx given for PRN Imitrex. Recommend follow-up with neurology for further evaluation regarding migraine. 2. Abnormal troponin-unclear etiology. EKG without ST-T changes. Patient underwent nuclear stress test which was negative for ischemia. LVEF 78%. 3. Anxiety/depression-continue Lexapro regimen. General: Alert, Oriented x3, Cooperative HEENT: Atraumatic, PERRLA, EOMI, Normocephalic Neck: Supple, No JVD, Negative Carotid Bruits Lungs: Clear to auscultation, Normal air movement Cardiovascular: Regular rate, Regular Rhythm, Normal S1, Normal S2, No murmurs Abdomen: Bowel Sounds Present, Soft, Non Tender, Non-Distended Extremities: No clubbing, No cyanosis, No edema, Capillary Refill Less than 3 Seconds Skin: No rashes, No breakdown Musculoskeletal: No Tenderness to Palpation of Joints or Extremities Neurological: Cranial nerves II-XII grossly intact, Neuro grossly intact Psych/Mental Status: Normal Affect, Appropriate Patient seen and examined prior to discharge. Physical assessment as noted above. Patient is stable for discharge with follow up recommendations as noted above. This patient was seen by KAITLYN Quispe under the supervision of Dr. Mcknight. - Physical Exam Vitals/I&O's: Vital Signs Temp Pulse Resp BP Pulse Ox 97.3 F L 64 16 122/60 H 96 06/22/19 10:50 06/22/19 10:59 06/22/19 10:50 06/22/19 10:50 06/22/19 10:50 Oxygen Delivery Method Room Air Weight: 215 lb 9.793 oz Body Mass Index (BMI) 36.5 Finger Stick Blood Glucose 78 Intake and Output for Last 24 Hours 06/20/19 06/21/19 06/22/19 23:59 23:59 23:59 Intake Total 240 / 240 1120 / 1120 Balance 240 / 240 1120 / 1120 Current Medications Acetaminophen (Tylenol) 1,000 mg PO Q8H PRN PRN PRN Reason: Pain Score 1-10/Temp > 100.7 F Last Admin: 06/22/19 06:39 Dose: 1,000 mg Documented by: Al Hydroxide/Mg Hydroxide (Mylanta Ii) 30 ml PO Q6H PRN PRN PRN Reason: Gastric Burning Aspirin (Aspirin, Baby) 81 mg PO DAILY@0800 [facility] Last Admin: 06/22/19 06:37 Dose: 81 mg Documented by: Atorvastatin Calcium (Lipitor) 80 mg PO QHS [facility] Last Admin: 06/21/19 21:04 Dose: 80 mg Documented by: Escitalopram Oxalate (Lexapro) 10 mg PO DAILY [facility] Last Admin: 06/22/19 10:52 Dose: 10 mg Documented by: Famotidine (Pepcid) 20 mg PO BID [facility] Last Admin: 06/22/19 06:37 Dose: 20 mg Documented by: Ketorolac Tromethamine (Toradol (Bkc)) 15 mg IV Q8 PRN PRN Reason: Pain Score 1-1010 Stop: 06/26/19 14:06 Last Admin: 06/22/19 10:56 Dose: 15 mg Documented by: Nitroglycerin (Nitrostat) 0.4 mg SUBLINGUAL Q5M PRN PRN Reason: CARDIAC/CHEST PAIN Sodium Chloride () 10 - 40 ml IV UD PRN PRN Reason: SALINE FLUSH Last Admin: 06/22/19 10:56 Dose: 10 ml Documented by: Sumatriptan Succinate (Imitrex) 6 mg SC X1 ONE Stop: 06/22/19 11:43 Discharge Diet: No Restrictions Discharge Activity: Return to Normal Activity Call your doctor if you observe: Shortness of breath, Dizziness, Fainting spells, Chest pain Home Medications: Medications to take at Discharge Escitalopram Oxalate [Lexapro] 10 mg PO DAILY PRN PRN 06/20/19 Sumatriptan Succinate [Imitrex] 50 mg PO .X1 PRN #20 tab 06/22/19 Following Prescrptions Were Given to Patient: Sumatriptan Succinate [Imitrex] 50 mg PO .X1 PRN #20 tab Primary Care Physician: NOT,DEFINED [NON-STAFF] - Please follow up with your Primary Care Physician in: 1 Week Please Follow Up With: Mayo Aguiar MD - Neurology When: Call for follow up appt Disposition: Home Minutes spent on discharge:: 35 Patient Condition:: Stable Medical Necessity - Tobacco Use Smoking Status: Never smoker Tobacco Use: Non-smoker, Secondhand Meaningful Use Info Meaningful Use Diagnoses (Choose all that apply): None applicable <James Mcknight - Last Filed: 06/22/19 13:21> Hospital Course and Treatment Imaging Results: 06/22/19 08:00 Nuclear Stress Test - Chemical [NM] Urgent Operations: None Procedures: Stress test Summary of Care Provided: Patient seen and examined independently. Data reviewed. I agree with the above note by the nurse practitioner. The patient is a 63 year old F presents with symptoms concerning for stroke. Patient has had some visual changes, some paresthesias. Patient was also having headache in the midst of all this. Patient underwent a stroke up with an MRI that was normal. Patient states that she typically gets migraines intermittently but none is lasted several days. Patient did receive a dose of dexamethasone 10 mg which did help her headache did not completely resolve it but is improved. Patient will be discharged with instructions to follow-up with neurology. Patient may take Imitrex as needed. Patient also did complain of some intermittent chest pain and did have a slight elevation in her cardiac markers of 0.15. Patient underwent a stress test today that was normal. Patient will be discharged home in stable condition [] - Physical Exam Vitals/I&O's: Vital Signs Temp Pulse Resp BP Pulse Ox 36.3 C L 64 16 122/60 H 96 06/22/19 10:50 06/22/19 10:59 06/22/19 10:50 06/22/19 10:50 06/22/19 10:50 Oxygen Delivery Method Room Air Weight: 97.8 kg Body Mass Index (BMI) 36.5 Finger Stick Blood Glucose 78 Intake and Output for Last 24 Hours 06/20/19 06/21/19 06/22/19 23:59 23:59 23:59 Intake Total 240 / 240 1120 / 1120 360 / 360 Balance 240 / 240 1120 / 1120 360 / 360 General: Alert, No apparent distress HEENT: Atraumatic, Normocephalic Oral: Moist Mucosa, No Gingival or Mucosal Lesions/ Ulcerations Discharge Diet: No Restrictions Discharge Activity: Return to Normal Activity Call your doctor if you observe: Shortness of breath, Dizziness, Fainting spells, Chest pain Disposition: Home Minutes spent on discharge:: 35 Patient Condition:: Stable Medical Necessity - Tobacco Use Smoking Status: Never smoker Tobacco Use: Non-smoker, Secondhand Meaningful Use Info Meaningful Use Diagnoses (Choose all that apply): None applicable OBSV E&M: 98748 Observation care discharge
[2019-06-22] MEDS: SUMAtriptan 6 MG/0.5 ML Vial SC (12:11)
== END 2019-06-22 11:51 | disposition home or self-care (01) ==
LOC: ED 16:59 → PCU 17:19
PROVIDERS: Admitting Provider Internal Medicine; Emergency Provider Emergency Medicine
DX: G43.909 Migraine, unspecified, not intractable, without status migrainosus (principal); F41.9 Anxiety disorder, unspecified; F32.9 Major depressive disorder, single episode, unspecified; R47.01 Aphasia; E66.9 Obesity, unspecified; R79.89 Other specified abnormal findings of blood chemistry; R00.1 Bradycardia, unspecified; R07.9 Chest pain, unspecified; Z68.36 Body mass index [BMI] 36.0-36.9, adult; Z71.3 Dietary counseling and surveillance; R20.2 Paresthesia of skin
CPT/HCPCS: 36415; 70496; 70498; 70551; 71045; 78452; 80048; 80053; 80061; 80076; 82962; 83036; 83735; 84443; 84484; 85025; 85610; 85730; 92523; 93005; 93017; 96372; 96374; 96375; 96376; 97802; 99218; 99284; A9500; Q9967; A4216; G0378; J2785; J3030

== ENCOUNTER 2022-08-07 10:41 | Emergency (ER) | payer MEDICARE, SELFPAY ==
[2022-08-07 10:43] VITALS: BP 138/94; PULSE 54; RESP 24; TEMP 35.7; O2SAT 98; BMI 41.9
--- NOTE | 2022-08-07 11:05 | CT_ITS ---
STUDY: CT BRAIN WITHOUT CONTRAST REASON FOR EXAM: Female, 66 years old. Head injury due to a fall. RADIATION DOSAGE (If Supplied By Facility): CTDIvol = ( 44.99 ) mGy, DLP = ( 796.11 ) mGycm TECHNIQUE: Transaxial CT imaging of the brain was performed without administration of intravenous contrast material. Individualized dose optimization techniques were used for this CT. COMPARISON: No relevant priors. FINDINGS: Normal soft tissue structures. Normal calvarium. There is mild cerebral atrophy with widening of the extra-axial spaces and ventricular dilatation. Normal white matter tracts of the cerebral hemispheres. Normal basal ganglia and thalami. Normal brainstem. Normal cerebellum. There is no intracranial hemorrhage. There are no findings of an acute ischemic infarction. Mucosal thickening of the right sphenoid sinus. Nasal septal deviation towards right side of the midline. Atherosclerotic calcific plaques of the cavernous portions of the internal carotid arteries bilaterally. CT/Brain/Head without Contrast IMPRESSION: Chronic involutional changes of the brain. Mucosal thickening of the right sphenoid sinus. Electronically Signed: Sami Morejon MD at 11:44 EDT ,
--- NOTE | 2022-08-07 11:05 | CT_ITS ---
STUDY: CT LUMBAR SPINE WITHOUT CONTRAST REASON FOR EXAM: Female, 66 years old. Low back pain following injury. RADIATION DOSAGE (If Supplied By Facility): CTDIvol = ( 37.21 ) mGy, DLP = ( 1220.82 ) mGycm TECHNIQUE: The patient was scanned in a multi detector CT scanner. High resolution transaxial imaging was performed. Images were obtained from L1 to S1 vertebral level. Sagittal and coronal images were reconstructed. Individualized dose optimization techniques were used for this CT. COMPARISON: None FINDINGS: There is an exaggerated lumbar lordosis. There is no substantial scoliosis. Normal vertebrae of the lumbar spine. L1-2: Normal endplates. Normal disc height and morphology. Normal bilateral facet joints. Normal central canal and bilateral lateral recesses. Normal bilateral intervertebral neural foramina. L2-3: Normal endplates. Normal disc height and morphology. Normal bilateral facet joints. Normal central canal and bilateral lateral recesses. Normal bilateral intervertebral neural foramina. L3-4: Normal endplates. Normal disc height and morphology. Normal bilateral facet joints. Normal central canal and bilateral lateral recesses. Normal bilateral intervertebral neural foramina. L4-5: Grade 1 anterior listhesis of L4 on L5. There is extensive facet joint osteoarthritis bilaterally. Bilateral neural foraminal stenosis. No evidence of spondylolysis. L5-S1: Marked degree of disc space narrowing and disc degeneration. Hiatal hernia. CT/Spine Lumbar without Contrast IMPRESSION: Grade 1 anterolisthesis of L4 on L5 most likely secondary to facet joint osteoarthritis. No spondylolysis is seen. Electronically Signed: Sami Morejon MD at 11:51 EDT ,
--- NOTE | 2022-08-07 11:05 | CT_ITS ---
STUDY: CT CERVICAL SPINE WITHOUT CONTRAST REASON FOR EXAM: Female, 66 years old. Neck pain following injury. RADIATION DOSAGE (If Supplied By Facility): CTDIvol = ( 27.41 ) mGy, DLP = ( 573.37 ) mGycm TECHNIQUE: High resolution transaxial imaging was performed without contrast material. Sagittal and coronal images were reconstructed. Individualized dose optimization techniques were used for this CT. COMPARISON: None FINDINGS: Normal craniovertebral junction. There are degenerative changes of the anterior atlantoaxial articulation. Normal odontoid process. There is straightening of the normal cervical lordosis. Normal vertebral bodies and posterior osseous elements. C2-3: Normal endplates. Normal disc height and morphology. Normal central canal and intervertebral neuroforamina. C3-4: Normal endplates. Normal disc height and morphology. Normal central canal and intervertebral neuroforamina. C4-5: Mild degree of broad disc space narrowing. Mild with anterior spondylosis. C5-6: Moderate degree of disc space narrowing. Mild anterior spondylosis. C6-7: Normal endplates. Normal disc height and morphology. Normal central canal and intervertebral neuroforamina. C7-T1: Normal endplates. Normal disc height and morphology. Normal central canal and intervertebral neuroforamina. Mucosal thickening of the right sphenoid sinus. CT/Spine Cervical without Contras IMPRESSION: Multilevel degenerative changes, as described above. Mucosal thickening of the right sphenoid sinus. Electronically Signed: Sami Morejon MD at 11:42 EDT ,
--- NOTE | 2022-08-07 11:16 | ED.VIS.FALL ---
HPI <FILIBERTO Antony - Last Filed: 08/07/22 13:20> HPI - Fall History of Present Illness Chief Complaint: Fall Narrative Narrative: Patient tripped over her dog and fell down 2 stairs landing on her left side. She did hit her head but denies LOC. The majority of the force hit her low back and left hip and she was unable to get up. She was brought in by EMS. She was given fentanyl and Zofran in route. She denies weakness numbness or tingling. She is not on blood thinners. She has some nausea from the analgesia. PFSH <FILIBERTO Antony - Last Filed: 08/07/22 13:20> [facility] Medical History (Updated 08/07/22 @ 13:20 by FILIBERTO Antony) Anxiety Hypoglycemia Home Medications fluoxetine 40 mg capsule 40 mg PO DAILY 08/07/22 [History Last Taken Unknown] Allergy/AdvReac Type Severity Reaction Status Date / Time codeine Allergy Vomiting Verified 08/07/22 10:43 Surgical History (Updated 08/07/22 @ 10:49 by Juli Hayes) History of left knee replacement Hx of cholecystectomy Hx of gastric bypass Hx of tonsillectomy Social History Smoking Status: Never smoker ROS <FILIBERTO Antony - Last Filed: 08/07/22 13:20> ROS ED ROS Narrative Constitutional: Negative for fever, chills, malaise. Eyes: Negative for visual change. CVS: Negative for chest pain, syncope. Respiratory: Negative for shortness of breath, cough. GI: Negative for abdominal pain, vomiting. Neuro: Negative for headache, motor/sensory dysfunction. Skin: Negative for wound. Musc: Positive for left hip pain. EXAM <FILIBERTO Antony - Last Filed: 08/07/22 13:20> Physical Exam Narrative Exam Narrative: CONST: Patient sitting in no acute distress. EYES: Normal inspection. PERRLA, EOMI ENT: Head normocephalic atraumatic, no raccoon eyes or brooke sign, no hemotympanum, no nasal septal hematoma, no CSF otorrhea or rhinorrhea. NECK: Normal inspection. No midline spinal tenderness, no step off or crepitus. RESP: No respiratory distress, CTAB. Chest wall nontender. CVS: Regular rate and rhythm, no murmur, no gallop. ABD: Soft and nontender, no guarding or rebound. Back: Normal inspection, no thoracic tenderness, positive midline lumbar tenderness with no step-offs. SKIN: Color normal, no rash, warm, dry, intact. EXTREMITIES: Normal appearance of upper/lower extremities, 2+ radial DP pulses. Full range of motion of upper extremities with no tenderness, she will slightly lift both legs off the bed but stops due to low back pain. No shortening or rotation, mild left hip pain, normal sensation. NEURO: Oriented x4. PSYCH: Normal affect. Const Vital Signs: 08/07/22 10:43 08/07/22 11:29 08/07/22 11:31 Temperature 96.3 F L Temperature Source Temporal Pulse Rate 54 L Respiratory Rate 24 H Respiratory Effort Normal Non-Labored Normal Non-Labored Blood Pressure 138/94 H Blood Pressure Mean 108 Pulse Ox 98 Oxygen Delivery Method Room Air Room Air <Dr. Koffi Wray DO - Last Filed: 08/07/22 14:29> Physical Exam Const Vital Signs: 08/07/22 10:43 08/07/22 11:29 08/07/22 11:31 Temperature 96.3 F L Temperature Source Temporal Pulse Rate 54 L Respiratory Rate 24 H Respiratory Effort Normal Non-Labored Normal Non-Labored Blood Pressure 138/94 H Blood Pressure Mean 108 Pulse Ox 98 Oxygen Delivery Method Room Air Room Air [facility] <FILIBERTO Antony - Last Filed: 08/07/22 13:20> [facility] Narrative Medical decision making narrative: History gathered from: Patient and Patient had a mechanical fall with closed head injury and has left hip and lumbar pain. She appears well and nontoxic with unremarkable vital signs. GCS 15. She has no external signs of head trauma. She has no midline cervical or thoracic tenderness?there is lumbar tenderness with no step-offs. Chest wall stable with normal heart and lung sounds. Abdomen soft and nontender. Pelvis intact. She does have pain with movement of the left hip but this is mainly in her low back. There is no leg shortening or rotation and upper and lower extremity pulses are intact. CT scans of the brain, cervical and lumbar spine are all negative. Hip and pelvis x-rays negative. Patient had received fentanyl from EMS and was given Toradol and Zofran in the ED. She refused all pain medications in the ED except for Tylenol but she was able to stand and ambulate so can be discharged home. I recommended Tylenol and ice as needed. Differential: Back contusions, spinal fracture, left hip fracture, closed head injury versus intracranial bleed. I considered prescriptions but she does not want narcotics as it causes her nausea and vomiting. Radiography Diagnostic Testing: Clinical Impression(s) from Imaging Studies Brain CT 08/07/22 11:05 IMPRESSION: Chronic involutional changes of the brain. Mucosal thickening of the right sphenoid sinus. Electronically Signed: Sami Morejon MD at 11:44 EDT , Cervical Spine CT 08/07/22 11:05 IMPRESSION: Multilevel degenerative changes, as described above. Mucosal thickening of the right sphenoid sinus. Electronically Signed: Sami Morejon MD at 11:42 EDT , Lumbar Spine CT 08/07/22 11:05 IMPRESSION: Grade 1 anterolisthesis of L4 on L5 most likely secondary to facet joint osteoarthritis. No spondylolysis is seen. Electronically Signed: Sami Morejon MD at 11:51 EDT , Hip/Pelvis X-Ray 08/07/22 11:30 IMPRESSION: Degenerative changes of the symphysis pubis. No fracture is seen. Electronically Signed: Sami Morejon MD at 11:54 EDT , ED attending interpretation of left hip and pelvis shows no acute fracture or dislocation. <Dr. Koffi Wray, DO - Last Filed: 08/07/22 14:29> [facility] MDM Narrative Medical decision making narrative: History gathered from: Patient and Patient had a mechanical fall with closed head injury and has left hip and lumbar pain. She appears well and nontoxic with unremarkable vital signs. GCS 15. She has no external signs of head trauma. She has no midline cervical or thoracic tenderness?there is lumbar tenderness with no step-offs. Chest wall stable with normal heart and lung sounds. Abdomen soft and nontender. Pelvis intact. She does have pain with movement of the left hip but this is mainly in her low back. There is no leg shortening or rotation and upper and lower extremity pulses are intact. CT scans of the brain, cervical and lumbar spine are all negative. Hip and pelvis x-rays negative. Patient had received fentanyl from EMS and was given Toradol and Zofran in the ED. She refused all pain medications in the ED except for Tylenol but she was able to stand and ambulate so can be discharged home. I recommended Tylenol and ice as needed. Differential: Back contusions, spinal fracture, left hip fracture, closed head injury versus intracranial bleed. I considered prescriptions but she does not want narcotics as it causes her nausea and vomiting. This patient was seen with a PA/[employer]AL W[employer] SCREEN ASSEMBLER Individually assessed they patient including history and physical. I have reviewed everything on the chart that is available and agree with the documentation provided by the PA/[employer]AL W[employer]OW SCREEN ASSEM[employer]ER including discussion about the assessment, treatment plan, discussion, and return precautions. Patient with fall and closed head injury is also having left hip pain. CT brain and CT cervical spine were negative. Left hip x-ray my interpretation was also negative for acute fracture or subluxation. Patient was feeling somewhat nauseous from the fentanyl she received via squad. She refused other medications. On reevaluation patient was ambulating in the room. She states she may need a walker for short time but she has one at home. This point she wants to be discharged home she will she was assisted to the door. Her get her walker when she is home. Return precautions discussed. Radiography Diagnostic Testing: Clinical Impression(s) from Imaging Studies Brain CT 08/07/22 11:05 IMPRESSION: Chronic involutional changes of the brain. Mucosal thickening of the right sphenoid sinus. Electronically Signed: Sami Morejon MD at 11:44 EDT , Cervical Spine CT 08/07/22 11:05 IMPRESSION: Multilevel degenerative changes, as described above. Mucosal thickening of the right sphenoid sinus. Electronically Signed: Sami Morejon MD at 11:42 EDT , Lumbar Spine CT 08/07/22 11:05 IMPRESSION: Grade 1 anterolisthesis of L4 on L5 most likely secondary to facet joint osteoarthritis. No spondylolysis is seen. Electronically Signed: Sami Morejon MD at 11:51 EDT , Hip/Pelvis X-Ray 08/07/22 11:30 IMPRESSION: Degenerative changes of the symphysis pubis. No fracture is seen. Electronically Signed: Sami Morejon MD at 11:54 EDT , Discharge Plan Triage Chief Complaint: Fall ED Midlevel Provider: Caty Lott ED Provider: Koffi Wray Dx/Rx/DC Orders Clinical Impression: Back contusion, Head injury, closed, Contusion of hip, left Instructions: ED Back Contusion Prescriptions: No Action fluoxetine 40 mg capsule 40 mg PO DAILY Primary Care Provider: Susana Elliott Referrals: Susana Elliott MD [Primary Care Provider] - Activity Restrictions/Additional Instructions: Take Tylenol every 6 hours as needed, use ice, follow-up with your primary care doctor. Disposition Disposition: Home, Self Care Discharge Date/Time: 08/07/22 13:34
--- NOTE | 2022-08-07 11:30 | RAD_ITS ---
STUDY: X-RAY - PELVIS AND LEFT HIP REASON FOR EXAM: , 66 years old. Pain following a fall. TECHNIQUE: 3 views of the pelvis and hip. COMPARISON: None. FINDINGS: There is a non-specific bowel gas pattern. There are multiple calcified phleboliths. Normal bilateral iliac wings, sacroiliac joints and visualized sacrum. Normal bilateral superior and inferior pubic rami. There is narrowing with sclerosis of the pubic symphysis. Normal bilateral ischial tuberosities. Normal visualized femoral head. Normal acetabulum. Normal hip joint. RAD/HIP, UNI W/ Pelvis 2-3 Views IMPRESSION: Degenerative changes of the symphysis pubis. No fracture is seen. Electronically Signed: Sami Morejon MD at 11:54 EDT ,
[2022-08-07] MEDS: Acetaminophen 325 MG Tablet 650 MG PO (13:07)
== END 2022-08-07 13:34 | disposition home or self-care (01) ==
PROVIDERS: Emergency Provider Student in an Organized Health Care Education/Training Program; PCP Family Medicine; Visit Provider Student in an Organized Health Care Education/Training Program
DX: S09.90XA Unspecified injury of head, initial encounter (principal); S70.02XA Contusion of left hip, initial encounter; W10.9XXA Fall (on) (from) unspecified stairs and steps, initial encounter; S30.0XXA Contusion of lower back and pelvis, initial encounter; F41.9 Anxiety disorder, unspecified; Z79.899 Other long term (current) drug therapy; Z96.652 Presence of left artificial knee joint
CPT/HCPCS: 70450; 72125; 72131; 73502; 96374; 96375; 99285; J7030; A4216; J2405